=== PATIENT | female | born 1985 | race Caucasian/White ===

== ENCOUNTER 2022-01-29 08:35 | Emergency (ER) | payer OTHER, SELFPAY ==
[2022-01-29 09:36] VITALS: BMI 21.9
--- NOTE | 2022-01-29 10:16 | ED_ITS ---
HPI - Eye Problem General Chief complaint: Eye Problems Stated complaint: r eye inj at work yesterday Time Seen by Provider: 01/29/22 09:06 History of Present Illness HPI Narrative: Patient complains of right eye pain since scratching it when she was hit with a piece of cord at work yesterday, she says her vision is little blurry, light does not hurt her eye there is no discharge from the eye, she does not use contacts or glasses Related Data Previous Rx's Medication Instructions Recorded erythromycin 5 mg/gram (0.5 %) eye 0.5 inch ophthalmic (eye) TID 4 01/29/22 ointment days #3.5 grams Allergies Allergy/AdvReac Type Severity Reaction Status Date / Time No Known Allergies Allergy Unverified 02/27/20 19:48 [No Known Allergies*] Review of Systems Review of Systems: Positive for right eye pain Negatives are no fever no chills no dizziness no weakness no headache no neck pain no discharge from eye no photophobia no loss of vision no skin rash no other injury Yes all other systems are reviewed and are negative COUNTS INCLUDE 234 BEDS AT THE [facility] Past Medical History Source: nursing notes reviewed Social History Social History Advance Directives: No Advance Directives Information Provided: Yes Physical Exam Vital Signs: Vital Signs: BMI result Body Mass Index 21.9 General appearance no acute distress The head is normocephalic atraumatic The eye exam the left eye is 2019 in the right eye is 2024 There is pupils equal round reactive to light and extraocular motions are intact, fluorescein staining revealed a fairly large corneal abrasion just below the iris, there was no photophobia Facial exam there were no wounds on the skin Neck is supple Respiratory no distress Extremities full range of motion x4 Course Course Course Narrative: Patient with work injury resulting in a right eye corneal abrasion is referred to work connection and eye doctor for Monday if needed Discharge Plan Discharge Clinical Impression: Corneal abrasion Patient Disposition: Home, Self-Care Additional Instructions: There was a fairly large abrasion in the bottom part of the cornea This may improve within 2 days If still uncomfortable or having any eye trouble follow with work connection or eye doctor Monday, who ever is available Return to the ER any time for worsening pain, vision loss, discharge from eye, any worse condition or any concerns Use the antibiotic erythromycin ointment for 4 days to prevent infection Prescriptions: New erythromycin 5 mg/gram (0.5 %) ointment 0.5 inch ophthalmic (eye) TID 4 Days Qty: 3.5 0RF Referrals: [facility] [Provider Group] (Right eye corneal abrasion at work) Gume Andrade [Physician] - (Right eye corneal abrasion) Stand Alone Forms: Work/School Release
[2022-01-29] MEDS: Fluorescein Sodium STRIP 1 STRIP EYE-RIGHT (10:38)
[2022-01-29] MEDS: Erythromycin Base 0.5% Oph Oin 1 GM TUBE 1 CM EYE-RIGHT (10:38)
[2022-01-29] MEDS: Tetracaine HCl/PF 0.5% Oph Sol 4 ML DROPS 3 DROP EYE-RIGHT (10:38)
== END 2022-01-29 10:40 | disposition home or self-care (01) ==
PROVIDERS: Emergency Provider Emergency Medicine; PCP Physician Assistant
DX: S05.01XA Injury of conjunctiva and corneal abrasion without foreign body, right eye, initial encounter (principal); W22.8XXA Striking against or struck by other objects, initial encounter; Y93.89 Activity, other specified; Y92.29 Other specified public building as the place of occurrence of the external cause; Y99.0 Civilian activity done for income or pay
CPT/HCPCS: 99282; 99283